=== PATIENT | female | born 1970 | race Caucasian/White ===

== ENCOUNTER 2019-08-17 15:09 | Emergency (ER) | payer OTHER ==
[2019-08-17 15:24] VITALS: BP 155/88
--- NOTE | 2019-08-17 15:53 | UC ---
Cardiac HPI - HPI Summary HPI Summary: 48 y/o F with a complex medical history including HTN and sarcoidosis presenting with multiple complaints. Patient is reporting that she has had a cough and chest pain a/w with her cough. She has had intermittent left-side that feels different than her chest pain with the cough. No exertional CP. She thought it may be her anxiety, tried taking Xanax which did not help. She also notes her blood pressure was elevated when she checked and and that her HR was fast. patient had hand surgery in April. Additionally she reports back pain , which she attributes to her kidneys. Has had inc in urination but no dysuria No hx DVT/PE, no cardiac hx. - History of Current Complaint Chief Complaint: UCGeneralIllness Stated Complaint: COUGH, CONGESTION Time Seen by Provider: 08/17/19 15:18 Onset/Duration: Lasting Days Pain Intensity: 8 Chest Pain Location: Left Anterior - Allergy/Home Medications Allergies/Adverse Reactions: Allergies Allergy/AdvReac Type Severity Reaction Status Date / Time No Known Allergies Allergy Verified 08/17/19 15:24 Home Medications: Home Medications ALPRAZolam TAB* [Xanax TAB*] 1 mg PO BID PRN 08/17/19 [History Confirmed ] Ascorbic Acid TAB* [Vitamin C TAB*] 500 mg PO DAILY 08/17/19 [History Confirmed 08/17/19] Cyanocobalamin TAB* [Vitamin B12 TAB*] 500 mcg PO DAILY 08/17/19 [History Confirmed 08/17/19] PMH/Surg Hx/FS Hx/Imm Hx - Surgical History Surgical History: Yes Surgery Procedure, Year, and Place: hysterectomy. left ankle surgery - Social History Alcohol Use: None Substance Use Type: None Smoking Status (MU): Former Smoker Household Exposure Type: Cigarettes Review of Systems All Other Systems Reviewed And Are Negative: Yes Respiratory: Positive: Cough. Negative: Shortness Of Breath Cardiovascular: Positive: Chest Pain Genitourinary: Positive: Frequency. Negative: Dysuria Psychological: Positive: Anxious Physical Exam - Summary Physical Exam Summary: Constitutional: Well-developed, Well-nourished, Alert. (-) Distressed Skin: Warm, Dry HENT: Normocephalic; Atraumatic Eyes: Conjunctiva normal Neck: Musculoskeletal ROM normal neck. (-) JVD, (-) Stridor Cardio: Rhythm regular, rate normal, Heart sounds normal; Intact distal pulses; Radial pulses are 2+ and symmetric. (-) Murmur Pulmonary/Chest wall: Effort normal. (-) Respiratory distress, (-) Wheezes, (-) Rales Abd: Soft, (-) tenderness, (-) Distension, (-) Guarding, (-) Rebound Musculoskeletal: (-) Edema, mild paraspinal thoracic pain Lymph: (-) Cervical adenopathy Neuro: Alert, Oriented x3 Psych: Mood and affect Normal Vital Signs: Initial Vital Signs Temp 36.1 C 08/17/19 15:12 Pulse 76 08/17/19 15:12 Resp 17 08/17/19 15:12 BP 155/88 08/17/19 15:12 Pulse Ox 100 08/17/19 15:12 Diagnostics - EKG Cardiac Rate: NL Cardiac Rhythm: Sinus: Normal Ectopy: None - at 15:15 EKG shows sinus rate of 82, normal intervals, T-wave flattening in Summary of EKG Findings: 3:15 PM EKG shows sinus rate of 82, normal intervals, T -wave flattening in aVL, no STEMI - Assessment/Plan Course Of Treatment: 48 y/o F w HTN and sarcoidosis p/w multiple complaints - urinary complaints: no flank tenderness, inc urination. Can get UA/labs at ED - regarding CP, EKG sinus, unable to further work up in UC. Advised to go to ED for labs, CXR. Although atypical CP, has been persistent for a week and had tachycardia. Given tachycardia cannot r/o PE in ED. Also cannot rule out ACS - had recent URI and cough. No SOB or fevers here. - needs PCP follow up, recently moved and would benefit from PCP - Differential Diagnoses - Palpitations Differential Diagnosis/HQI/PQRI: Panic Disorder - Clinical Impression Provider Diagnosis: Chest pain, Cough, Frequent urination, Hypertension Discharge ED - Sign-Out/Discharge Documenting (check all that apply): Patient Departure All imaging exams completed and their final reports reviewed: No Studies - Discharge Plan Condition: Stable Disposition: HOME-RECOMMEND TO ED Patient Education Materials: Chest Pain (ED) Referrals: No Primary Care Phys,NOPCP [Primary Care Provider] - Additional Instructions: You were seen in the emergency department for chest pain and cough. We advise that you go to the ED regarding your chest pain. If any studies were not completed at the time of discharge you will be called with the relevant results. It was a pleasure taking care of you today. - Billing Disposition and Condition Condition: STABLE Disposition: Home-Recommend to ED
== END 2019-08-17 16:06 | disposition home health service (06) ==
LOC: UCCORT 15:09
DX: R07.9 Chest pain, unspecified (principal); R05 Cough; R35.0 Frequency of micturition; I10 Essential (primary) hypertension; Z87.891 Personal history of nicotine dependence
CPT/HCPCS: 93005; 99201; G0463

== ENCOUNTER 2019-09-14 16:45 | Emergency (ER) | payer OTHER ==
--- OUTSIDE RECORDS SUMMARY | 2019-09-14 16:53 | XMS REPORT | Continuity of Care Document ---
:1970 Author Organization 0001 - S [facility] Address [address] [place] [address] Phone Care Team Providers Name Role Phone ILENE DEY Unavailable Unavailable Allergies, Adverse Reactions, Alerts Substance Reaction Status Iodinated Contrast Media Active Medications Medication Instructions Dosage Effective Dates Status Comments (start - stop) alprazolam 1 mg take 1 tablet by - Active MDD 2 . tablet oral route twice every day as needed Vitamin D2 [place] [address] UNITS - Active 50,000 unit oral route every capsule week ProAir HFA 90 inhale 2 puff by 2 puff - Active Can use mcg/actuation Inhalation route Proventil, aerosol inhaler every 4 - 6 hours Ventolin, as needed albuterol, or ProAir air Vitamin C 1,000 one daily - Active mg tablet Vitamin B-12 take 1 tablet by 1 tablet - Active 1,000 mcg tablet oral route every day alprazolam 1 mg take 1 tablet by - No Longer MDD 2 . tablet oral route twice Active every day as needed alprazolam 1 mg take 1 tablet by - No Longer MDD 2 . tablet oral route twice Active every day as needed alprazolam 1 mg take 1 tablet by - No Longer MDD 2 . tablet oral route twice Active every day as needed Vitamin D2 [place] [address]41 UNITS - No Longer 50,000 unit oral route every Active capsule week Problems Condition Effective Dates (start - stop) Clinical Status Closed nondisplaced fracture of proximal phalanx of left great toe with routine healing, subsequent encounter Left foot pain Acute left ankle pain Nondisplaced unspecified fracture of left great toe, sequela Encounter for other orthopedic - aftercare Ganglion, right hand - Encounter for other orthopedic - aftercare Ganglion, right hand - Encounter for other orthopedic - aftercare Ganglion, right hand - Postoperative examination Encounter for other orthopedic - aftercare Ganglion, right hand - Ganglion, finger joint of right hand Preop exam for internal medicine Essential (primary) hypertension Sarcoid Anxiety Ganglion, finger joint of right hand Ganglion, finger joint of right hand Finger mass, right Migraine without status migrainosus, not intractable, unspecified migraine type Anxiety Sarcoid Need for hepatitis C screening test Ganglion, finger joint of right hand Ganglion, finger joint of right hand Finger mass, right Ganglion cyst of finger of right hand Sarcoid Migraine without status migrainosus, not intractable, unspecified migraine type Abrasion of skin Migraine without status migrainosus, not intractable, unspecified migraine type Closed nondisplaced fracture of distal phalanx of lesser toe of left foot, initial encounter Pain in left toe(s) Walked into furniture, initial - encounter Closed fracture of phalanx of left third toe with routine healing, subsequent encounter Displaced unsp fracture of left lesser - toe(s), init Sinus symptom Insect bite of right shoulder, initial encounter ^ Bitten or stung by nonvenomous insect and other nonvenomous arthropods, initial encounter Encntr for general adult medical exam w/o abnormal findings Encounter for screening mammogram for malignant neoplasm of breast Screening for diabetes mellitus Anxiety Mixed hyperlipidemia Sarcoidosis Body mass index (BMI) 39.0-39.9, adult - Anxiety Sarcoidosis Sarcoidosis of lung Bronchitis Sarcoidosis of lung Sarcoidosis Bronchitis Elevated blood pressure reading Sarcoidosis Anxiety Essential (primary) hypertension Vitamin D deficiency, unspecified Personal history of nicotine - dependence Cntct w and expsr to environ tobacco - smoke (acute) (chronic) Anxiety Essential (primary) hypertension Sarcoidosis Personal history of nicotine - dependence Cntct w and expsr to environ tobacco - smoke (acute) (chronic) Allergic reaction to contrast material, subsequent encounter Sarcoidosis Anxiety Essential (primary) hypertension Adverse effect of diagnostic agents, - initial encounter Personal history of nicotine - dependence Cntct w and expsr to environ tobacco - smoke (acute) (chronic) Acute pharyngitis, unspecified RUQ abdominal pain Sarcoidosis of lung Acute sinusitis Nausea and vomiting in adult Mixed hyperlipidemia Encntr for general adult medical exam w/o abnormal findings Encounter for screening mammogram for malignant neoplasm of breast Screening for diabetes mellitus Anxiety Sarcoidosis Vitamin D deficiency, unspecified Body mass index (BMI) 34.0-34.9, adult - Contusion of right forearm, subsequent encounter Contact with and (suspected) exposure to viral hepatitis Contusion of right forearm, subsequent encounter Contusion of right forearm, subsequent encounter Contusion of right forearm, initial - encounter Fall on or from [employer] gym, initial - encounter Unspecified place or not applicable - Activity, unspecified - PTSD (post-traumatic stress disorder) Anxiety Sarcoidosis of lung Sarcoidosis Procedures Procedure Date Procedure Unknown Results Test Name Date and Time Measure Units Reference Range Abnormal Flag Status Comments Unknown Encounters Encounter Practice Location Reason(s) Diagnoses Date Provider Providers Description For Visit Copied on Encounter 2019 - [facility] Primary KRISTIN S [facility], [facility] 0- ILENE. [address], [address], . [address], tel:[phone] tel:[phone] [place] [address] Primary TESSA BRE. [facility] Inc, Care [facility] [address] [place] 0 [facility], [address]. Arie tel:[phone] [place], [address], tel:[phone] [place] [address] Closed EVELIO [facility], Orthopedics nondisplaced [address]. [address] [place] fracture of [address], [facility], phalanx of left [address]. Arie great toe with tel:[phone] [place], routine [address], [place] healing, tel:[phone] subsequent [phone] encounter 0001 - S [facility] Left foot Dec-1 EVELIO [facility], Orthopedics painAcute left 9[address]. [address] [place] ankle [address], [place] painNondisplace [place], [place], Street, d unspecified [address]. Arie fracture of tel:[phone] [place], left great toe, [address], [place] sequela tel:[phone] 0001 - S Primary Dec-1 TESSA DÍAZ. [facility], Care H 0-[address] [place] [address], [facility], [place], [place], Street, [address]. Arie tel:[phone] [place], [address], [place] tel:[phone] 0001 - S [facility] Encounter for Dec-0 QUETA [facility], Orthopedics other [address] [place] [address], [place], [place], Street, on, right hand [address]. Arie tel:[phone] [place], [address], [place] tel:[phone] 0001 - [facility] Encounter for Dec-0 QUETA [facility], Orthopedics other 4[address]. [address] [place] orthopedic [address], [place], [place], Street, on, right hand [address]. Arie tel:[phone] [place], [address], [place] tel:[phone] 0001 - [facility] Encounter for Dec-0 EVELIO [facility], Orthopedics other 2[address]. [address] [place] orthopedic [address], [place], [place], Street, on, right hand [address]. Arie tel:[phone] [place], [address], [place] tel:[phone] 0001 - S [facility] Postoperative Nov-2 EVELIO [facility], Orthopedics examinationEnco 5-[address]. [address] [place] unter for other [address], [place] orthopedic [place], [place], Street, aftercareGangli [address]. Arie on, right hand tel:[phone] [place], [address], [place] tel:[phone] 0001 - [facility] Primary Ganglion, Nov-0 TESSA DÍAZ. [facility], [facility] finger joint of 5-[address] [place] right handPreop 9 St, CM, [place] exam for [place], [place], Street, internal [address]. Arie medicine tel:[phone] [place], [address], [place] tel:[phone] 0001 - [facility] CM Essential Oct-[address] [facility], Orthopedics (primary) 8[address]. [address] [place] hypertension [address], [place], Street, [address]. Arie tel:[phone] [place], [address], [place] tel:[phone] 0001 - [facility] Primary SarcoidAnxietyG Oct-2 TESSA DÍAZ. [facility], [facility] anglion, finger 4-[address] [place] joint of right [address], [facility], [place] hand [place], [place], Street, [address]. Arie tel:[phone] [place], [address], [place] tel:[phone] 0001 - [facility] Ganglion, Oct-[address] [facility], [place] finger joint of 4-201 ESCOBAR. [address], [place] handFinger [place], [place], Street, mass, right [address]. Arie tel:[phone] [place], [address], [place] tel:[phone] 0001 - [facility] Primary Migraine Sep-2 TESSA DÍAZ. [facility] Inc, [facility] without status 6-[address] [place] migrainosus, 9 St, [facility], [place] not [place], [place], Street, intractable, [address]. Arie unspecified tel:[phone] [place], [place] [address], [place] typeAnxietySarc tel:[phone] oidNeed for [phone] hepatitis C screening testGanglion, finger joint of right hand 0001 - S CM Ganglion, Sep-1 QUETA [facility], Orthopedics finger joint of 9-[address]. 4 [address] [place] right hand [address], [place], Street, [address]. Arie tel:[phone] [place], [address], [place] tel:[phone] 0001 - S [facility] Finger mass, Sep-1 QUETA [facility], Orthopedics right 7-[address] [place] [address], [place], [place], Street, [address]. Arie tel:[phone] [place], [address], [place] tel:[phone] 0001 - S Primary Ganglion cyst Sep-1 BOSE S Inc, Care [facility] of finger of [address]. 179 - [place] right hand [address] [place], [place], [place] [address]. [place], tel:[phone], [place] [address] tel:[phone] 0001 - S Primary SarcoidMigraine Aug-2 BOSE [facility], Care CM without status 2-201 FRANCI. [address] [place] migrainosus, 9 [facility], [place], [place], [place] unspecified [address]. [place], migraine tel:[phone], [place] [address] tel:[phone] skin [phone] 0001 - S Primary Migraine Aug-1 BOSE S Inc, Care CM without status 5-201 FRANCI. [address] [place] migrainosus, 9 [facility], [place], [place], [place] unspecified [address]. [place], migraine type tel:[phone], [place] [address] tel:[phone] 0001 - [facility] Closed Ron-0 PUTRINO S Inc, Podiatry nondisplaced 5-201 LIZ. [address], [place] distal phalanx [place], [place], Street, of lesser toe [address]. Arie of left foot, tel:[phone] [place], [place] [address], [place] encounterPain tel:[phone] in left [phone] toe(s)Walked into furniture, initial encounter 0001 - [facility] Primary Closed fracture Hever- TESSA DÍAZ. [facility] Inc, Care [facility] of phalanx of [address] [place] left third toe [address], [facility], [place] with routine [place], [place], Street, healing, [address]. Arie subsequent tel:[phone] [place], [place], encounterDispla [address], [place] teja unsp tel:[phone] fracture of [phone] left lesser toe(s), init 0001 - [facility] Primary Sinus Hever- KRISTIN [facility], [facility] symptomInsect ILENE. [address] [place] bite of right 9 [facility], [place] shoulder, Primary Street, initial Care, [place] encounter [place], [place], [place], ^[place] [address], [place]. [address], [place] stung by tel:[phone] tel:[phone] nonvenomous [phone] insect and other nonvenomous arthropods, initial encounter 0001 - [facility] Primary Encntr for TESSA DÍAZ. S Inc, Care [facility] general adult [address] [place] medical exam 9 , [facility], [place] w/o abnormal [place], [place], Street, findingsEncount [address]. Arie er for tel:[phone] [place], [place] [address], [place] mammogram for tel:[phone] malignant [phone] neoplasm of breastScreening for diabetes mellitusAnxiety Mixed hyperlipidemiaS arcoidosisBody mass index (BMI) 39.0-39.9, adult 0001 - [facility] Primary AnxietySarcoido TESSA DÍAZ. S Inc, Care [facility] sisSarcoidosis [address] [place] of lung [address], [facility], [place], [place], Street, [address]. Arie tel:[phone] [place], [address], [place] tel:[phone] 0001 - [facility] Primary Bronchitis MONSIVAIS HERI. [facility] [address] [place] [address] , [place], [place], Street, [address], [place]. A[place] tel:[phone] [place], [address], [place] tel:[phone] 0001 - [facility] Primary Sarcoidosis of WOOD BRE. [facility] lungSarcoidosis 0 [address] [facility] 3357 [place] 8 , [facility], [place], [place], Street, [address]. Arie tel:[phone] [place], [address], [place] tel:[phone] 0001 - [facility] Primary BronchitisEleva MONSIVAIS HERI. [facility] manav blood [address] pressure [address] [facility] readingSunity psychiatric care [place], [place], Street, sis [address], [place]. Arie tel:[phone] [place], [address], [place] tel:[phone] 0001 - [facility] Primary AnxietyEssentia TESSA DÍAZ. [facility] l (primary) [address] [facility] [address] [place] [address] hypertensionVit 8 , [facility], [place] carrillo D [place], [place], Street, deficiency, [address]. Arie unspecifiedPers tel:[phone] [place], [place] [address], [place] nicotine tel:[phone] dependenceCntct [phone] w and expsr to environ tobacco smoke (acute) (chronic) 0001 - [facility] Primary AnxietyEssentia TESSA DÍAZ. [facility] l (primary) [address] [facility] [address] [place] hypertensionSar 8 , [facility], [place] coidosisPersona [place], [place], [place], [place] [address]. A[place] nicotine tel:[phone] [place], dependenceCntct [address], [place] w and expsr to tel:[phone] environ tobacco [phone] smoke (acute) (chronic) 0001 - [facility] Primary Allergic TESSA DÍAZ. [facility], [facility] reaction to 3-[address] [place] contrast 8 , [facility], [employer], [place], Street, subsequent [address]. Arie encounterSarcoi tel:+[phone] [place], [place], dosisAnxietyEss [address], [place] ential tel:[phone] (primary) [phone] hypertensionAdv erse effect of diagnostic agents, initial encounterPerson al history of nicotine dependenceCntct w and expsr to environ tobacco smoke (acute) (chronic) 0001 - [facility] Primary Dec-0 TESSA DÍAZ. [facility], [facility] 2-[address], [facility], [place], [place], Street, [address]. Arie tel:[phone] [place], [address], [place] tel:[phone] 0001 - [facility] Primary Acute Hever-0 TESSA DÍAZ. [facility] pharyngitis, 7 [address] [place] unspecifiedRUQ 8 [facility], [place], [place], Street, painSarcoidosis [address]. Arie of lung tel:+[phone] [place], [address], [place] tel:[phone] 0001 - [facility] Primary Acute Hever-0 TESSA DÍAZ. [facility], [facility] sinusitisNausea 1-201 [address] [place] and vomiting in [address] [place] [address], Street, [address]. Arie tel:[phone] [place], [address], [place] tel:[phone] 0001 - [facility] Primary Mixed Apr- TESSA DÍAZ. [facility], [facility] hyperlipidemiaE 9-[address] [place] ncntr for [address] [place] [address], Street, medical exam [address]. Arie w/o abnormal tel:[phone] [place], findingsEncount [address], [place] er for tel:[phone] screening [phone] mammogram for malignant neoplasm of breastScreening for diabetes mellitusAnxiety SarcoidosisVita min D deficiency, unspecifiedBody mass index (BMI) 34.0-34.9, adult 0001 - [facility] CM Contusion of Apr-1 [facility] S Inc, Orthopedics right forearm, DEISY. [facility] [address] [place] subsequent [address], [address], [place], [place] [address], [place]. [place], tel:[phone], [place] [address] tel:[phone] 0001 - [facility] Primary Contact with Mar-3 TESSA DÍAZ. S Inc, Care [facility] and (suspected) 0 [address], [facility], [place] viral hepatitis [place], [place], Street, [address]. Arie tel:[phone] [place], [address], [place] tel:[phone] 0001 - [facility] Contusion of Mar-2 [facility] Inc, Orthopedics right forearm, DEISY. [facility] [place] subsequent [address], Street, [place], [place] [address], [place]. [place], tel:[phone], [place] [address] tel:[phone] 0001 - [facility] Primary Contusion of Mar-2 MONSIVAIS HERI. S Inc, Care [facility] right forearm, 0 [address], [place] encounterContus [place], [place], Street, ion of right [address], [place]. [place] forearm, tel:[phone] [place], [place] [address], [place] encounterFall tel:[phone] on or from [phone] [employer] gym, initial encounterUnspec ified place or not applicableActiv ity, unspecified 0001 - [facility] Primary PTSD Feb-2 TESSA DÍAZ. S Inc, Care [facility] (post-traumatic [address] [facility] [address] [place] [address], [facility], [place] disorder)Anxiet [place], [place], [place], [place] [address]. Arie lungSarcoidosis tel:[phone] [place], [address], [place] tel:[phone] Family History Family Member Diagnosis Age At Onset Maternal uncle Cancer, colon Maternal grandmother Diabetes mellitus Maternal uncle Cancer, lung Mother Anxiety Mother Hypothyroidism Maternal aunt Diabetes mellitus Maternal uncle Cancer, prostate Paternal grandfather Diabetes mellitus Immunizations Vaccine Date Status Comments Influenza, injectable, administered Source: New Immunization quadrivalent, preservative Record free, split virus Influenza, injectable, administered Source: New Immunization quadrivalent, preservative Record free, split virus TDAP (Boostrix or Adacel) administered Source: New Immunization Record Payers Payer name Insurance type Covered alliance party ID Authorization(s) [facility] [id number] [facility] [employer]ity[employer]ole[employer] He [id number] [facility] Play[employer] He [id number] [facility] Playfire [id number] Social History Type Description Quantity Date Captured Comments Alcohol Use Details Unknown Caffeine Use Details Unknown Tobacco Use Status Unknown Smoking Status Unknown Vital Signs Date / Height Weight BMI Pulse Blood Temperature Respiratory Body Head BMI Time: Rate Pressure Rate Surface Circumference percentile Area Unknown Chief Complaint And Reason For Visit No information Reason For Referral Reason For Referral Unknown Plan Of Care Date Type Action Status Referral Ordered: ordered Xray Foot complete (Must choose side) LT foot Referral Ordered: ordered Xray Ankle complete (Must choose side) LT ankle Referral Referred To: ordered [facility] Ordered: Referrals: [facility]. Evaluate and treat Referral Ordered: ordered MRI upr extr w/o cntrst flwd cntrst RT hand Referral Ordered: ordered Rheumatology (related to Sarcoid) Referral Ordered: ordered Referrals: Neurology. Evaluate and treat Appointment date/timeframe: 03/04/2019 Referral Ordered: ordered Xray Toe(s) (Must choose toe(s), side) LT foot Referral Ordered: ordered Podiatry (related to Closed fracture of phalanx of left third toe with routine healing, subsequent encounter) Referral Ordered: ordered Referrals: Podiatry. Evaluate and treat Referral Ordered: ordered Pulmonology (related to Sarcoidosis of lung) Referral Ordered: ordered Pulmonology (related to Sarcoidosis of lung) Referral Ordered: ordered Rheumatology (related to Sarcoidosis) Referral Ordered: ordered Referrals: Pulmonology. Evaluate and treat Referral Ordered: ordered Referrals: Rheumatology. Evaluate and treat Referral Ordered: ordered X-RAY EXAM CHEST 2 VIEWS Referral Ordered: ordered CT Abdomen & Pelvis w & w/o Contrast Appointment date/timeframe: 11/29/2017 Referral Ordered: ordered Mammogram, Screening, Bilateral, 2 Views Each Appointment date/timeframe: 09/24/2017 Referral Ordered: ordered Referrals: Orthopedic Surgery. Evaluate and treat Appointment date/timeframe: 08/26/2017 Appointment SOFIA PATTON Date Type Problem Goal Intervention Status Start Date Unknown History Of Present Illness Encounter Date Complaint History Of Present Illness No information Functional Status Encounter Date Functional Assessment Cognitive Assessment Unknown Medications Administered Medication Instructions Dosage Effective Dates Status Comments (start - stop) alprazolam 1 mg take 1 tablet by - No Longer MDD 2 . tablet oral route twice Active every day as needed Instructions Date Instruction Additional Information Follow-up with the orthopedic surgeon Related to Ganglion, finger joint of right hand Please follow-up with your specialists Related to Sarcoid as scheduled Continue with current medications and Related to Anxiety management Labs ordered as requested. Related to Need for hepatitis C screening test Please follow up with the Related to Sarcoid director of instruction as scheduled Follow up with the neurologist as Related to Migraine without status scheduled migrainosus, not intractable, unspecified migraine type Continue with Xanax Related to Anxiety apply bactroban for the next few days Related to Abrasion of skin and keep covered. If gets worse, let us know Will have you see the control systems specialist Related to Closed fracture of for further manage management phalanx of left third toe with routine healing, subsequent encounter Continue with Flonase dailyAdd Zyrtec Related to Sinus symptom 10mg daily Call if not improvement in 10days Tylenol alternating with Motrin for head ache Healthy dieting and regular exercises Related to Encntr for general adult medical exam w/o abnormal findings Referral to the lung specialist ordered Related to Sarcoidosis of lung as requested Continue with current medications and Related to Anxiety management Albuterol inhaler 2 puffs 4 x a day for Related to Bronchitis 3 days then use as neededFlonase use for 3 weeks then stopTessalon Perles for coughing take 2 at bedtime Mucinex for 5 days take with plenty of waterPrednisone 40 mg daily for 5 daysZPAK as directed Thank you for choosing [facility] for your appt. We hope that you will be feeling better soon. Any condition can change and some diseases may worsen despite proper treatment. Other problems may begin with vague or unusual symptoms and only over time will the problem become more clear, making it possible to arrive at the correct diagnosis. Your visit today is not a substitute for or an effort to provide complete medical care. In most cases, you should have a follow up appt so you can be checked again. Tell your doctor about any new or lasting problems. If you do not have a primary care provider, you can call [phone] to arrange for one to be set up with you. All xrays are interpreted by a radiologist, usually within 48-72 hours. If there is any important difference between the radiologists interpretation and what you were told today by the provider you will be notified. If you had cultures done today, results will be available in 72 hours depending on specimen. Will treat with PrednisoneSmall amount Related to Sarcoidosis of lung of [place] given to be used as needed for severe pain Prednisone for 5 dayscall with any Related to Sarcoidosis questions or concerns Thank you for choosing [facility] for your appt. We hope that you will be feeling better soon. Any condition can change and some diseases may worsen despite proper treatment. Other problems may begin with vague or unusual symptoms and only over time will the problem become more clear, making it possible to arrive at the correct diagnosis. Your visit today is not a substitute for or an effort to provide complete medical care. In most cases, you should have a follow up appt so you can be checked again. Tell your doctor about any new or lasting problems. If you do not have a primary care provider, you can call [phone] to arrange for one to be set up with you. All xrays are interpreted by a radiologist, usually within 48-72 hours. If there is any important difference between the radiologists interpretation and what you were told today by the provider you will be notified. If you had cultures done today, results will be available in 72 hours depending on specimen. Albuterol inhaler 2 puffs 3 x aday for Related to Bronchitis 3 days then use as neededFlonase use for 14 days then stopTessalon Perles for coughing take 2 at bedtime Mucinex for 5 days take with plenty of watercall with any questions or concernsfollow up with PCP Your blood pressure was noted to be Related to Elevated blood pressure elevated on todays visit. Follow up reading with your PCP for monitoring, management or treatment if indicated Will continue with Vitamin D Related to Vitamin D deficiency, supplementation unspecified Please take the Clonidine as prescribed Related to Essential ( primary) hypertension Continue with Alprazolam (refilled Related to Anxiety today) Continue Clonidine Related to Essential (primary) hypertension Continue with Alprazolam Related to Anxiety Restart Clonidine Related to Essential (primary) hypertension Xanax refilled for BID #60 Related to Anxiety Will continue the steroid Related to Allergic reaction to treatment.Medrol dose pack ordered contrast material, subsequent encounter Will get some labs and a CT scan of Related to RUQ abdominal pain your bellyTake Extra Strength Tylenol as need for pain Stop AmoxicillinStart Z-pack Related to Acute pharyngitis, unspecified Treat with a course of Amoxicillin Related to Acute sinusitis Try Zofran so you can eat and drink to Related to Nausea and vomiting in help with the lightheadedness and adult weakness. Healthy dieting and regular exercises Related to Encntr for general adult medical exam w/o abnormal findings Will order some labs to include Related to Contact with and hepatitis panelFor the mean time you (suspected) exposure to viral will want to use protection when having hepatitis sexual intercourse with your boyfriend and avoid exchange of bodily fluids. Warm vs cool compresseswear Related to Contusion of right splintfollow up with OrthoContinue forearm, subsequent encounter taking Naproxen with food as neededfollow up with PCP Take Zantac while taking Naproxencall with any questions or concernsif color change temperature changes numbness or tingling get immediate follow up Thank you for choosing [facility] same day appt. We hope that you will be feeling better soon. Any condition can change and some diseases may worsen despite proper treatment. Other problems may begin with vague or unusual symptoms and only over time will the problem become more clear, making it possible to arrive at the correct diagnosis. Your visit today is not a substitute for or an effort to provide complete medical care. In most cases, you should let your primary care doctor check you again. Tell your doctor about any new or lasting problems. If you do not have a primary care provider, you have been given a list today of local providers who are accepting new patients. All xrays are interpreted by a radiologist, usually within 48 hours. If there is any important difference between the radiologists interpretation and what you were told today by the provider you will be notified. If you had cultures done today, results will be available in 72 hours depending on specimen. 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
[2019-09-14 17:01] VITALS: BP 144/81
[2019-09-14] MEDS ORDERED: Ketorolac INJ* 30 MG/ML 1 ML VIAL IM ONE (17:13)
--- NOTE | 2019-09-14 17:13 | UC ---
Shoulder Pain HPI - HPI Summary HPI Summary: 48-year-old female with right shoulder pain. She has chronic shoulder pain is a result of an injury years ago. She states she has a "knot" in her right upper back. - History of Current Complaint Chief Complaint: UCBackPain Stated Complaint: RIGHT SHOULDER/BACK COMPLAINT Time Seen by Provider: 09/14/19 17:01 Hx Obtained From: Patient ?: No Onset/Duration: Gradual Onset, Lasting Weeks Timing: Constant Severity Initially: Mild Severity Currently: Moderate Pain Intensity: 10 Character: Dull, Unable to Describe - Patient describes the sore area as a tender knot in her right posterior shoulder Aggravating Factor(s): Movement, Lifting Alleviating Factor(s): Rest, Ice Associated Signs And Symptoms: Positive: Negative - Allergies/Home Medications Allergies/Adverse Reactions: Allergies Allergy/AdvReac Type Severity Reaction Status Date / Time No Known Allergies Allergy Verified 09/14/19 17:01 Home Medications: Home Medications ALPRAZolam TAB* [Xanax TAB*] 1 mg PO BID PRN 08/17/19 [History Confirmed ] Ascorbic Acid TAB* [Vitamin C TAB*] 1,000 mg PO DAILY 08/17/19 [History Confirmed 09/14/19] Cyanocobalamin TAB* [Vitamin B12 TAB*] 500 mcg PO DAILY 08/17/19 [History Confirmed 09/14/19] Cyclobenzaprine TAB* [Flexeril 10 MG TAB*] 10 mg PO TID PRN #15 tab 09/14/19 [Rx ] Ergocalciferol (Vitamin D2) [Vitamin D2] 50 mcg PO WEEKLY 09/14/19 [History Confirmed 09/14/19] Ibuprofen TAB* [Motrin TAB* 600 MG] 600 mg PO Q8H PRN #30 tab 09/14/19 [Rx] Multivit-Min/Iron/Folic/Lutein [Multivitamin Women 50 Plus Tab] 1 each PO DAILY 09/14/19 [History Confirmed 09/14/19] PMH/Surg Hx/FS Hx/Imm Hx Previously Healthy: Yes - Surgical History Surgical History: Yes Surgery Procedure, Year, and Place: hysterectomy. left ankle surgery - Family History Known Family History: Positive: Unknown - Social History Occupation: Unemployed Alcohol Use: None Substance Use Type: None Smoking Status (MU): Former Smoker Household Exposure Type: Cigarettes Review of Systems All Other Systems Reviewed And Are Negative: Yes Musculoskeletal: Positive: Other: - She stated to the nurse that she is unable to move her right shoulder. Is Patient Immunocompromised?: No Physical Exam Triage Information Reviewed: Yes Appearance: Well-Appearing, No Pain Distress, Well-Nourished Vital Signs: Initial Vital Signs Temp 98.8 F 09/14/19 16:53 Pulse 89 09/14/19 16:53 Resp 18 09/14/19 16:53 BP 144/81 09/14/19 16:53 Pulse Ox 95 09/14/19 16:53 Vital Signs Reviewed: Yes Eyes: Positive: Conjunctiva Clear Neck: Positive: Supple, Nontender, No Lymphadenopathy Respiratory: Positive: Chest non-tender, Lungs clear, Normal breath sounds, No respiratory distress, No accessory muscle use Cardiovascular: Positive: RRR, No Murmur, Pulses Normal, Brisk Capillary Refill Musculoskeletal: Positive: Strength Intact, ROM Intact, Other: - While patient is explaining her shoulder pain to me she is putting her arm and shoulder through full range of motion without any appearance of discomfort. She has good arm strength with flexion and extension against resistance. Peripheral pulses, neuro sensation and capillary refill. Mild pain on palpation to the right trapezius muscle area however the shoulder itself is nontender. Neurological Exam: Normal Psychological Exam: Normal Skin Exam: Normal Shoulder Course/Dx - Course Course Of Treatment: Patient can apply heat to the sore area and take Tylenol intermittently with Motrin as directed for pain. I did give her a muscle relaxant. She preferred also to have an injection of Toradol which was given to here. - Differential Dx/Diagnosis Provider Diagnosis: Strain of right trapezius muscle Discharge ED - Sign-Out/Discharge Documenting (check all that apply): Patient Departure All imaging exams completed and their final reports reviewed: No Studies - Discharge Plan Condition: Good Disposition: HOME Prescriptions: Cyclobenzaprine TAB* [Flexeril 10 MG TAB*] 10 mg PO TID PRN #15 tab PRN Reason: Pain - Mild Ibuprofen TAB* [Motrin TAB* 600 MG] 600 mg PO Q8H PRN #30 tab PRN Reason: Pain - Mild Patient Education Materials: Muscle Strain (DC) Forms: *Work Release Referrals: [facility] [place] [facility] [Outside] No Primary Care Phys,NOPCP [Primary Care Provider] - Additional Instructions: Avoid movements that cause pain, apply heat to the sore area. Take the Motrin with food. Follow-up with [facility] if no improvement in 3 or 4 days. Avoid lifting heavy objects. Call the physician referral service to establish care with a primary care provider. - Billing Disposition and Condition Condition: GOOD Disposition: Home - Attestation Statements Provider Attestation: This patient was not seen by me. I was available for consult. Chart reviewed. MICHOACANO
== END 2019-09-14 17:25 | disposition home or self-care (01) ==
LOC: UCCORT 16:45
DX: S46.811A Strain of other muscles, fascia and tendons at shoulder and upper arm level, right arm, initial encounter (principal); X58.XXXA Exposure to other specified factors, initial encounter; Y92.9 Unspecified place or not applicable; Z87.891 Personal history of nicotine dependence
CPT/HCPCS: 96372; 99212; G0463; J1885